=== PATIENT | female | born 1985 | race Two or more races ===

== ENCOUNTER 2023-09-04 14:21 | Outpatient (CLI) | payer OTHER ==
[2023-09-05] MEDS ORDERED: OBSTETRIX ONE CAPSUL (11:32)
[2023-09-05] MEDS ORDERED: VITAMIN D-40010 MCG PO (12:23)
[2023-09-05] MEDS ORDERED: VITAMIN C100 MG PO (12:23)
[2023-09-05] MEDS ORDERED: MAGNESIUM200 MG PO (12:25)
[2023-09-05] MEDS ORDERED: PRENATAL TABLE1 EAC1 PO (12:25)
== END 2023-09-04 14:30 | disposition home or self-care (01) ==
LOC: PRENATAL 14:21
PROVIDERS: ATTEND Obstetrics & Gynecology Maternal & Fetal Medicine
DX: O35.9XX0 Maternal care for (suspected) fetal abnormality and damage, unspecified, not applicable or unspecified (principal); O35.3XX0 Maternal care for (suspected) damage to fetus from viral disease in mother, not applicable or unspecified; O09.519 Supervision of elderly primigravida, unspecified trimester; O44.00 Complete placenta previa NOS or without hemorrhage, unspecified trimester; Z3A.20 20 weeks gestation of pregnancy

== ENCOUNTER 2023-09-04 17:58 | Inpatient (IN) | payer OTHER ==
[~2023-09-04] VITALS: Ht 165.1 cm; Wt 66.7 kg
[2023-09-04 18:54] LABS: PH,URINE 6.5 (5.0-8.0); URINE APPEARANCE Clear; URINE BILIRRUBIN Negative (NEGATIVE); URINE BLOOD Large; URINE COLOR Yellow; URINE GLUCOSE Negative (NEGATIVE); URINE LEUKOCYTE Negative; URINE NITRATE Negative; URINE PROTEIN Negative (NEGATIVE); URINE UROBILINOGEN 0.2 E.U./dl
[2023-09-04 18:54] LABS: HEMATOCRIT 34.1 % (36.0-45.00); HEMOGLOBIN 11.5 g/dL (12.0-15.00); MEAN CELL VOLUME 89.4 fL (80.00-100.00); MEAN CORPUSCULAR HEMOGLOBIN 30.2 pg (27.00-32.0); MEAN CORPUSCULAR HGB CONC 33.7 g/dl (32.0-36.0); PLATELET COUNT 187 K/uL (150-450); RED BLOOD COUNT 3.81 M/uL (4.00-6.00); RED CELL DISTRIBUTION WIDTH 14.5 % (11.5-14.5)
[2023-09-04 18:55] LABS: URINE BACTERIA 26.4 uL (0.0-1933); URINE EPITHELIAL CELLS 3.2 uL (0.0-38.8); URINE RBC 1252.5 uL (0.0-20.8); URINE WBC 3.8 uL (0.0-23.2)
[2023-09-04 19:11] LABS: INR 0.95; PARTIAL THROMBOPLASTIN TIME 26.3 SECONDS (22.0-34.0)
[2023-09-04 19:16] LABS: ALBUMIN 2.9 gm/dL (3.4-5.0); BILIRUBIN TOTAL 0.24 mg/dL (0.3-1.2); CALCIUM 8.7 mg/dL (8.5-10.1); CREATININE SERUM 0.63 mg/dL (0.55-1.02); GFR 106.33; POTASSIUM 3.79 mEq/L (3.5-5.1); TOTAL PROTEIN 6.9 gm/dL (6.4-8.2)
[2023-09-05] MEDS ORDERED: OBSTETRIX ONE CAPSUL (11:32)
[2023-09-05] MEDS ORDERED: VITAMIN D-40010 MCG PO (12:23)
[2023-09-05] MEDS ORDERED: VITAMIN C100 MG PO (12:23)
[2023-09-05] MEDS ORDERED: MAGNESIUM200 MG PO (12:25)
[2023-09-05] MEDS ORDERED: PRENATAL TABLE1 EAC1 PO (12:25)
== END 2023-09-08 12:56 | disposition home or self-care (01) | DRG 833 ==
LOC: OBS/DEL 17:58 → LDR 09-05 12:05 → OBS/DEL 09-05 12:05 → OB/GYN 09-05 12:05
PROVIDERS: ADMIT General Practice; ATTEND General Practice
PROC: 4A1HXCZ Monitoring of Products of Conception, Cardiac Rate, External Approach (ICD-10-PCS; principal; 2023-09-05)
DX: O26.872 Cervical shortening, second trimester (principal); Z3A.20 20 weeks gestation of pregnancy; Z20.822 Contact with and (suspected) exposure to COVID-19

== ENCOUNTER 2024-04-03 10:15 | Inpatient (IN) | payer OTHER ==
[~2024-04-03] VITALS: Ht 165.1 cm; Wt 63.5 kg
[~2024-04-03 10:15] MED LIST: MAGNESIUM200 MG PO; OBSTETRIX ONE CAPSUL; PRENATAL TABLE1 EAC1 PO; VITAMIN C100 MG PO; VITAMIN D-40010 MCG PO
[2024-04-03 11:19] LABS: HEMATOCRIT 40.7 % (36.0-45.00); HEMOGLOBIN 13.6 g/dL (12.0-15.00); MEAN CORPUSCULAR HEMOGLOBIN 29.8 pg (27.00-32.0); MEAN CORPUSCULAR HGB CONC 33.5 g/dl (32.0-36.0); PLATELET COUNT 216 K/uL (150-450); RED BLOOD COUNT 4.57 M/uL (4.00-6.00); RED CELL DISTRIBUTION WIDTH 14.3 % (11.5-14.5)
[2024-04-03 11:39] LABS: INR 1.03; PARTIAL THROMBOPLASTIN TIME 26.6 SECONDS (22.0-34.0); PROTHROMBIN TIME 10.8 SECONDS (9.0-11.5)
[2024-04-03 11:47] LABS: ALBUMIN 3.9 gm/dL (3.4-5.0); BILIRUBIN TOTAL 0.64 mg/dL (0.3-1.2); CALCIUM 9.3 mg/dL (8.5-10.1); CREATININE SERUM 0.67 mg/dL (0.55-1.02); GFR 98.5; GLOBULINA 3.5 G/DL (2.4-3.5); POTASSIUM 4.31 mEq/L (3.5-5.1); TOTAL PROTEIN 7.4 gm/dL (6.4-8.2)
[2024-04-10] MEDS ORDERED: POVIDONE-IODINE 118 ML BOTT TOP NR (07:15)
[2024-04-10] MEDS ORDERED: CEFAZOLIN SODIUM 1,000 MG VIAL IV ONE (08:00)
[2024-04-10] MEDS ORDERED: ONDANSETRON HCL 2 MG/ML VIAL ONE (09:32)
[2024-04-10 11:06] LABS: HEMATOCRIT 39.1 % (36.0-45.00); HEMOGLOBIN 13.2 g/dL (12.0-15.00); MEAN CELL VOLUME 88.3 fL (80.00-100.00); MEAN CORPUSCULAR HEMOGLOBIN 29.9 pg (27.00-32.0); MEAN CORPUSCULAR HGB CONC 33.8 g/dl (32.0-36.0); PLATELET COUNT 141 K/uL (150-450); RED BLOOD COUNT 4.43 M/uL (4.00-6.00); RED CELL DISTRIBUTION WIDTH 14.7 % (11.5-14.5)
[2024-04-10] MEDS ORDERED: KETOROLAC TROMETHAMINE 30 MG VIAL ONE (11:10)
[2024-04-10] MEDS ORDERED: KETOROLAC TROMETHAMINE 30 MG VIAL IM SCH (11:45)
[2024-04-10] MEDS ORDERED: KETOROLAC TROMETHAMINE 10 MG TABLET PO SCH (14:00)
[2024-04-10 15:24] LABS: HEMOGLOBIN 12.5 g/dL (12.0-15.00); MEAN CELL VOLUME 89.4 fL (80.00-100.00); MEAN CORPUSCULAR HEMOGLOBIN 29.5 pg (27.00-32.0); PLATELET COUNT 159 K/uL (150-450); RED BLOOD COUNT 4.26 M/uL (4.00-6.00); RED CELL DISTRIBUTION WIDTH 14.5 % (11.5-14.5)
[2024-04-10] MEDS ORDERED: MEPERIDINE HCL/PF 25 MG,MEPERIDINE HCL/PF 50 MG IM SCH (17:00)
[2024-04-10] MEDS ORDERED: PROMETHAZINE HCL 25 MG/ML AMPUL IM SCH (17:00)
[2024-04-10] MEDS ORDERED: CEFAZOLIN SODIUM 1,000 MG VIAL IV SCH (17:00)
[2024-04-11 06:38] LABS: HEMOGLOBIN 11.7 g/dL (12.0-15.00); MEAN CELL VOLUME 90.3 fL (80.00-100.00); MEAN CORPUSCULAR HEMOGLOBIN 30.2 pg (27.00-32.0); MEAN CORPUSCULAR HGB CONC 33.4 g/dl (32.0-36.0); PLATELET COUNT 149 K/uL (150-450); RED BLOOD COUNT 3.88 M/uL (4.00-6.00); RED CELL DISTRIBUTION WIDTH 14.7 % (11.5-14.5)
[2024-04-11] MEDS ORDERED: ACETAMINOPHEN WITH CODEINE 1 UDTAB TABLET PO SCH (09:00)
[2024-04-11] MEDS ORDERED: GUAIFENESIN 200 MG/10 ML BLIST.PACK PO SCH (13:45)
[2024-04-13] MEDS ORDERED: ACETAMINOPHEN-1 EAC2 PO (11:32)
[2024-04-13] MEDS ORDERED: KETO10TA2 PO (11:32)
== END 2024-04-13 12:10 | disposition home or self-care (01) | DRG 743 ==
LOC: O/R 04-10 05:36 → OB/GYN 04-10 05:36 → SURH 04-10 07:00 → OB/GYN 04-10 11:03 → SURH 04-10 12:00 → OB/GYN 04-13 12:10
PROVIDERS: ADMIT Obstetrics & Gynecology Maternal & Fetal Medicine; ATTEND Obstetrics & Gynecology Maternal & Fetal Medicine
PROC: 0UVC7ZZ Restriction of Cervix, Via Natural or Artificial Opening (ICD-10-PCS; 2024-04-10)
PROC: 0DBW0ZX Excision of Peritoneum, Open Approach, Diagnostic (ICD-10-PCS; 2024-04-10)
PROC: 0UB90ZZ Excision of Uterus, Open Approach (ICD-10-PCS; principal; 2024-04-10 07:00)
DX: D25.9 Leiomyoma of uterus, unspecified (principal); N88.8 Other specified noninflammatory disorders of cervix uteri; Z20.822 Contact with and (suspected) exposure to COVID-19

== ENCOUNTER 2025-01-01 11:19 | Outpatient (CLI) | payer OTHER ==
[~2025-01-01 11:19] MED LIST changes: +ACETAMINOPHEN-1 EAC2 PO; +KETO10TA2 PO
== END 2025-01-01 12:11 | disposition home or self-care (01) ==
LOC: NST 11:19
PROVIDERS: ATTEND Obstetrics & Gynecology Maternal & Fetal Medicine
DX: Z34.82 Encounter for supervision of other normal pregnancy, second trimester (principal)

== ENCOUNTER → 2025-01-29 | Outpatient (CLI) | payer OTHER | END | disposition home or self-care (01) | LOC: NST 09:54 | PROVIDERS: ATTEND Obstetrics & Gynecology | DX: Z34.83 Encounter for supervision of other normal pregnancy, third trimester (principal) ==

== ENCOUNTER 2025-02-13 10:18 | Outpatient (CLI) | payer OTHER | END 2025-02-13 11:09 | disposition home or self-care (01) | LOC: NST 10:18 | PROVIDERS: ATTEND Obstetrics & Gynecology | DX: Z3A.33 33 weeks gestation of pregnancy (principal) ==

== ENCOUNTER 2025-03-04 15:43 | Outpatient (CLI) | payer OTHER | END 2025-03-04 16:19 | disposition home or self-care (01) | LOC: NST 15:43 | PROVIDERS: ATTEND Obstetrics & Gynecology Maternal & Fetal Medicine | DX: Z34.83 Encounter for supervision of other normal pregnancy, third trimester (principal) ==

== ENCOUNTER 2025-03-17 11:15 | Inpatient (IN) | payer OTHER ==
[~2025-03-17] VITALS: Ht 165.1 cm; Wt 2.7 kg
[2025-03-17 12:54] LABS: BASO % 0.5 % (0.1-1.2); EOS # 0.02 (0.04-0.54); EOS % 0.2 % (0.7-7.0); HEMATOCRIT 35.6 % (34.1-44.9); HEMOGLOBIN 11.6 g/dL (11.2-15.7); LYMPH # 1.35 (1.18-3.74); LYMPH % 15.9 % (19.3-53.1); MEAN CORPUSCULAR HEMOGLOBIN 28.7 pg (25.6-32.2); MONO # 0.69 (0.24-0.82); MONO % 8.1 % (4.7-12.5); NEUT # 6.34 (1.56-6.13); NEUT % 74.5 % (34.0-71.1); PLATELET COUNT 146 K/uL (163-369); RED BLOOD COUNT 4.04 M/uL (3.93-5.22); RED CELL DISTRIBUTION WIDTH 15.6 % (11.6-14.4)
[2025-03-17 13:13] LABS: INR < 0.93; PARTIAL THROMBOPLASTIN TIME 22.7 SECONDS (22.0-34.0); PROTHROMBIN TIME 9.9 SECONDS (9.0-11.5)
[2025-03-17 13:29] LABS: ALBUMIN 2.6 gm/dL (3.4-5.0); BILIRUBIN TOTAL 0.31 mg/dL (0.3-1.2); CREATININE SERUM 0.7 mg/dL (0.55-1.02); GFR 93.16; GLOBULINA 3.6 G/DL (2.4-3.5); POTASSIUM 4.27 mEq/L (3.5-5.1); TOTAL PROTEIN 6.2 gm/dL (6.4-8.2)
[2025-03-19 07:38] VITALS: BP 113/75
[2025-03-19] MEDS ORDERED: CEFOXITIN SODIUM 2,000 MG VIAL IV ONE ×2 (08:36→18:00)
[2025-03-19] MEDS ORDERED: CITRIC ACID/SODIUM CITRATE 30 ML BLIST.PACK PO ONE (08:36)
[2025-03-19] MEDS ORDERED: ERYTHROMYCIN BASE OPHT 1GM EACH TUBE OP ONE (09:05)
[2025-03-19] MEDS ORDERED: OXYTOCIN 10 UNITS/ML VIAL ONE (09:05)
[2025-03-19] MEDS ORDERED: KETOROLAC TROMETHAMINE 30 MG VIAL ONE (11:57)
[2025-03-19] MEDS ORDERED: KETOROLAC TROMETHAMINE 30 MG VIAL IM ONE (12:30)
[2025-03-19 15:02] VITALS: BP 131/76
[2025-03-19 15:11] LABS: BASO % 0.3 % (0.1-1.2); EOS # 0.01 (0.04-0.54); EOS % 0.1 % (0.7-7.0); HEMATOCRIT 41.4 % (34.1-44.9); HEMOGLOBIN 13.9 g/dL (11.2-15.7); LYMPH # 1.47 (1.18-3.74); LYMPH % 8.1 % (19.3-53.1); MEAN CORPUSCULAR HEMOGLOBIN 29.8 pg (25.6-32.2); MONO # 0.92 (0.24-0.82); MONO % 5.1 % (4.7-12.5); NEUT # 15.59 (1.56-6.13); NEUT % 85.7 % (34.0-71.1); PLATELET COUNT 157 K/uL (163-369); RED BLOOD COUNT 4.66 M/uL (3.93-5.22); RED CELL DISTRIBUTION WIDTH 15.7 % (11.6-14.4)
[2025-03-19 16:20] VITALS: BP 153/77
[2025-03-19] MEDS ORDERED: MEPERIDINE HCL/PF 50 MG/ML VIAL IM SCH (17:00)
[2025-03-19] MEDS ORDERED: MORPHINE SULFATE 4 MG/ML CARTRIDGE IV PRN (17:00)
[2025-03-19] MEDS ORDERED: SIMETHICONE 125 MG CAPSULE PO SCH (17:00)
[2025-03-19] MEDS ORDERED: PROMETHAZINE HCL 25 MG/ML AMPUL IM SCH (17:00)
[2025-03-19] MEDS ORDERED: ONDANSETRON HCL 2 MG/ML VIAL IV PRN (17:00)
[2025-03-19] MEDS ORDERED: KETOROLAC TROMETHAMINE 10 MG TABLET PO PRN (18:00)
[2025-03-19 20:00] VITALS: BP 136/78
[2025-03-20 01:29] VITALS: BP 122/76
[2025-03-20 07:35] LABS: BASO % 0.2 % (0.1-1.2); EOS # 0.02 (0.04-0.54); EOS % 0.1 % (0.7-7.0); HEMATOCRIT 31.8 % (34.1-44.9); HEMOGLOBIN 10.8 g/dL (11.2-15.7); LYMPH # 1.53 (1.18-3.74); LYMPH % 11.5 % (19.3-53.1); MONO # 0.96 (0.24-0.82); MONO % 7.2 % (4.7-12.5); NEUT # 10.74 (1.56-6.13); NEUT % 80.4 % (34.0-71.1); RED CELL DISTRIBUTION WIDTH 15.9 % (11.6-14.4)
[2025-03-20 07:47] LABS: PLATELET COUNT 123 K/uL (163-369)
[2025-03-20] MEDS ORDERED: OxyCODONE HCL 5 MG TABLET (ROXICODONE) PO SCH (08:00)
[2025-03-20 10:46] VITALS: BP 111/69
[2025-03-20 16:00] VITALS: BP 118/74
[2025-03-21 01:12] VITALS: BP 125/64
[2025-03-21] MEDS ORDERED: OXYTOCIN 10 UNITS/ML VIAL IV ONE (09:15)
[2025-03-21] MEDS ORDERED: CEFAZOLIN SODIUM 1,000 MG VIAL IV ONE (09:15)
[2025-03-21] MEDS ORDERED: ERYTHROMYCIN BASE OPHT 1GM EACH TUBE OP ONE (09:15)
[2025-03-21 10:04] VITALS: BP 134/75
[2025-03-21 16:32] VITALS: BP 137/83
[2025-03-21] MEDS ORDERED: BISACODYL 5 MG TABLET.EC PO ONE (21:15)
[2025-03-22 01:39] VITALS: BP 138/77
[2025-03-22 08:00] VITALS: BP 131/75
== END 2025-03-22 13:49 | disposition home or self-care (01) | DRG 788 ==
LOC: O/R 03-19 05:55 → OB/GYN 03-19 05:55
PROVIDERS: ADMIT Obstetrics & Gynecology Maternal & Fetal Medicine; ATTEND Obstetrics & Gynecology Maternal & Fetal Medicine
PROC: 4A1HXCZ Monitoring of Products of Conception, Cardiac Rate, External Approach (ICD-10-PCS; 2025-03-19)
PROC: 10D00Z1 Extraction of Products of Conception, Low, Open Approach (ICD-10-PCS; principal; 2025-03-19 08:30)
DX: O34.83 Maternal care for other abnormalities of pelvic organs, third trimester (principal); Z3A.38 38 weeks gestation of pregnancy; Z37.0 Single live birth

== ENCOUNTER 2025-03-23 18:07 | Emergency (ER) | payer OTHER ==
[~2025-03-23] VITALS: Ht 165.1 cm; Wt 81.6 kg
[2025-03-23] MEDS ORDERED: 0.9 % SODIUM CHLORIDE 2,000 ML IV STA (19:06)
[2025-03-23] MEDS ORDERED: HALOPERIDOL LACTATE 5 MG/ML AMPUL IM STA (19:07)
[2025-03-23] MEDS ORDERED: DIPHENHYDRAMINE HCL 50 MG/ML VIAL 1ML IM STA (19:07)
[2025-03-23] MEDS ORDERED: KETOROLAC TROMETHAMINE 15 MG VIAL IV STA (19:08)
[2025-03-23 20:15] LABS: BASO % 0.4 % (0.1-1.2); EOS # 0.13 (0.04-0.54); EOS % 1.2 % (0.7-7.0); HEMOGLOBIN 11.1 g/dL (11.2-15.7); LYMPH % 10.6 % (19.3-53.1); MEAN CORPUSCULAR HEMOGLOBIN 29.5 pg (25.6-32.2); MONO # 0.79 (0.24-0.82); NEUT # 9.03 (1.56-6.13); NEUT % 80.1 % (34.0-71.1); PLATELET COUNT 163 K/uL (163-369); RED BLOOD COUNT 3.76 M/uL (3.93-5.22); RED CELL DISTRIBUTION WIDTH 15.7 % (11.6-14.4)
[2025-03-23 20:56] LABS: ALBUMIN 2.5 gm/dL (3.4-5.0); BILIRUBIN TOTAL 0.44 mg/dL (0.3-1.2); CALCIUM 8.7 mg/dL (8.5-10.1); CREATININE SERUM 0.62 mg/dL (0.55-1.02); GFR 107.16; GLOBULINA 3.6 G/DL (2.4-3.5); POTASSIUM 4.02 mEq/L (3.5-5.1); TOTAL PROTEIN 6.1 gm/dL (6.4-8.2)
== END 2025-03-23 22:08 | disposition home or self-care (01) ==
LOC: ER 18:07
DX: O89.4 Spinal and epidural anesthesia-induced headache during the puerperium (principal)

== ENCOUNTER 2025-03-25 02:04 | Inpatient (IN) | payer OTHER ==
[~2025-03-25] VITALS: Ht 165.1 cm; Wt 86.2 kg
--- NOTE | 2025-03-25 02:20 | NUR ---
PTE ALERTA Y ORIENTADA X3. REFIERE ESTABA CON HERNANDEZ ALEIDA CUANDO SE TEDDY. SE REFIERE DOLOR DE RYAN. PTE DE DR. ALEJANDRE, SE LE REALIZO CESARIA MIERCOLES
[2025-03-25] MEDS ORDERED: 0.9 % SODIUM CHLORIDE 1,000 ML IV STA ×2 (03:27→03:38)
[2025-03-25] MEDS ORDERED: DEXAMETHASONE SODIUM PHOSPHATE 4 MG/ML VIAL IV STA (03:45)
[2025-03-25] MEDS ORDERED: KETOROLAC TROMETHAMINE 30 MG VIAL IV STA (03:46)
--- NOTE | 2025-03-25 04:13 | NUR ---
SE REALIZA B/P MANUAL 190/80[facility] SE NOTIFICA A DR. MULTANI.
[2025-03-25] MEDS ORDERED: LORazepam 2 MG/ML VIAL IV PUSH STA (04:23)
--- NOTE | 2025-03-25 04:36 | NUR ---
SE RECIBE PTE INCONCIENTE CON MOVIEMIENTOS INVOLUNTARIOS DE AREA DE OBSERVACION SE COLOCOCA EN AREA DE CRITICO EN CAMA #1 CON BARADAS ELEVADAS. SE CONECTA A MONITOSR CARDIACO Y OXIMETRIA DE PULSO SE LE REALIZA EKG. SE OBSERVA POR CAMBIOS.
--- NOTE | 2025-03-25 04:42 | NUR ---
PTE ALERTA Y ORIENTADA X3 SE ORIENTA SOBRE TRATMIENTO MEDICO Y MUESTRAS DE JESUS. SE CANALIZA PARK DE EDEMA NI ERITEMA SE SYD MUESTRAS DE JESUS BAJO MEDIDAS ASEPTICAS, PTE PRESENTA CONVULCION SE NOTIFICA A MEDICO EL CUAL PONE ORDEN DE PASAR PTE A AREA DE CRITICO.
[2025-03-25 04:56] LABS: URINE APPEARANCE Clear; URINE BILIRRUBIN Negative (NEGATIVE); URINE BLOOD Moderate; URINE COLOR Yellow; URINE GLUCOSE Negative (NEGATIVE); URINE KETONE Negative (NEGATIVE); URINE LEUKOCYTE Negative; URINE NITRATE Negative; URINE PROTEIN Negative (NEGATIVE); URINE UROBILINOGEN 0.2 E.U./dl
[2025-03-25 05:00] LABS: ABG PH 7.315 (7.35-7.45); ABG PO2 70.4 mmHg (80-100); BICARBONATE 17.8 mmol/l (23-25)
[2025-03-25 05:00] LABS: URINE BACTERIA 9.5 uL (0.0-1933); URINE EPITHELIAL CELLS 4.9 uL (0.0-38.8); URINE RBC 3.5 uL (0.0-20.8); URINE WBC 15.6 uL (0.0-23.2)
[2025-03-25 05:03] LABS: URINE CAST 0.14 uL (0.0-1.40)
[2025-03-25 05:14] LABS: BASO % 0.2 % (0.1-1.2); EOS # 0.04 (0.04-0.54); EOS % 0.3 % (0.7-7.0); LYMPH # 1.17 (1.18-3.74); LYMPH % 9.5 % (19.3-53.1); MEAN PLATELET VOLUME 11.90 fl (9.4-12.4); MONO # 0.68 (0.24-0.82); MONO % 5.5 % (4.7-12.5); NEUT # 10.20 (1.56-6.13); NEUT % 83.1 % (34.0-71.1); RED CELL DISTRIBUTION WIDTH 15.5 % (11.6-14.4)
[2025-03-25 05:25] LABS: INR 0.98
[2025-03-25] MEDS ORDERED: MAGNESIUM SULFATE IN WATER 4 GM/100 ML PIGGYBACK IV STA (05:33)
--- NOTE | 2025-03-25 05:33 | NUR ---
SE MARY B/P MANUAL 160/70
[2025-03-25 05:40] LABS: ALT/SGPT 294.0 U/L (12-78); AST/SGOT 148.0 U/L (15-37); BILIRUBIN TOTAL 0.5 mg/dL (0.3-1.2); BUN CREA RATIO 21.0 (7.0-25.0); CREATININE SERUM 0.61 mg/dL (0.55-1.02); GFR 109.19; GLOBULINA 3.3 G/DL (2.4-3.5); GLUCOSE FASTING 98.0 mg/dL (65-100); OSMOLALITY SERUM 293.0 MOSM/KG (275-295); TSH 1.64 uIU/mL (0.358-3.74)
[2025-03-25 05:40] LABS: o2 32 %
[2025-03-25] MEDS ORDERED: LABETALOL HCL 20MG/4ML SYRINGE IV STA (06:31)
[2025-03-25] MEDS ORDERED: MAGNESIUM SULFATE IN WATER 500 ML IV SCH (07:00)
[2025-03-25 07:32] LABS: BILIRUBIN TOTAL 0.44 mg/dL (0.3-1.2); BILIRUBIN,CONJUGATED 0.12 mg/dL (0.0-0.2)
--- NOTE | 2025-03-25 08:19 | NUR ---
SE RECIBE PTE. UBICADA EN CAMA#1 DE SANDRITA CRITICA, CONECTADA A MONITOR CARDIACO, IVF PATENTE EN BRAZO YOLA CON 0.9NSS AT 100ML/HR. PAINTING CATETER IN PLACE. SE SYD SIGNOS VITALES Y SE COMIENZA DRIP DE SULFATO DE MAGNESIO AT 50ML/HR. SE ORIENTA SOBRE PROCEDIENTOS REALIZADOS Y SEGUIMIENTO DE CONDICION. CLIENTE ALERTA Y ORIENTADO AL MOMENTO DE LA INTERVENCION PORPERSONAL RN, SE MANTIENEN EN OBSERVACION POR CAMBIOS SIGNIFICATIVOS EN HERNANDEZ CONDICION.
--- NOTE | 2025-03-25 10:45 | NUR ---
SE LLEVA A LA PTE A ESTUDIO DE MRI DE RYAN CON CONTRASTE IV. SE LE MARY MUESTRA DE MAGNECIO POR ORDEN MEDICA DEL RONALDO HOWELL NEUROLOGO. SE MANTIENE BAJO OBSERVACION.
[2025-03-25] MEDS ORDERED: LABETALOL HCL 100 MG/20 ML ML IV PUSH ONE (13:30)
--- NOTE | 2025-03-25 15:05 | NUR ---
SE RECIBE FEMINA DEL TURNO ANTERIOR EN UNIDAD DE CRITICO #1, CAMA POSICION MAS BAJA Y BARANDAS ELEVADAS POR SEGURIDAD. CONECTADA A MONITOR CARDIACO Y OXIMETRIA DE PULSO. CANALIZADA EN AMBAS EXTREMIDADES SUPERIORES, PATENTES LIBRES DE EDEMA, ERITEMA Y SIGNOS DE INFECCION CON IVF'S JILLIAN ORDEN MEDICA. PACIENTE CON SONDA URINARIA PATENTE, COLOCADA A GRAVEDAD. PACIENTE CONSULTADA CON DR BRIGGS Y DR RONALDO ESPARZA.
[2025-03-25] MEDS ORDERED: LABETALOL HCL 200 MG TABLET PO SCH (17:00)
[2025-03-25] MEDS ORDERED: hydrALAZINE HCL 20 MG VIAL IV PRN (17:30)
[2025-03-25] MEDS ORDERED: DEXAMETHASONE SODIUM PHOSP/PF 10 MG/ML VIAL IV STA (17:34)
[2025-03-25 18:00] VITALS: BP 134/70; O2SAT 98
[2025-03-25] MEDS ORDERED: DEXAMETHASONE SODIUM PHOSP/PF 10 MG/ML VIAL IV SCH (18:00)
[2025-03-25 19:00] VITALS: BP 155/73; O2SAT 98
[2025-03-25 20:46] VITALS: BP 151/75; O2SAT 95
[2025-03-25 23:31] VITALS: BP 140/68; O2SAT 95
[2025-03-26] VITALS (8 sets, daily range): BP systolic 134–163; BP diastolic 65–89; O2SAT 97–100
[2025-03-26] MEDS ORDERED: DEXAMETHASONE SODIUM PHOSPHATE 4 MG/ML VIAL IV SCH ×2 (05:00→12:00)
[2025-03-26 06:15] LABS: BASO % 0.2 % (0.1-1.2); EOS # 0.00 (0.04-0.54); EOS % 0.0 % (0.7-7.0); LYMPH # 0.76 (1.18-3.74); LYMPH % 7.9 % (19.3-53.1); MEAN PLATELET VOLUME 11.60 fl (9.4-12.4); MONO # 0.30 (0.24-0.82); MONO % 3.1 % (4.7-12.5); NEUT # 8.42 (1.56-6.13); NEUT % 87.7 % (34.0-71.1); RED CELL DISTRIBUTION WIDTH 15.4 % (11.6-14.4)
[2025-03-26 06:41] LABS: ALT/SGPT 243.0 U/L (12-78); AST/SGOT 87.0 U/L (15-37); BILIRUBIN TOTAL 0.42 mg/dL (0.3-1.2); BUN CREA RATIO 15.0 (7.0-25.0); CREATININE SERUM 0.53 mg/dL (0.55-1.02); GFR 128.42; GLOBULINA 3.5 G/DL (2.4-3.5); GLUCOSE FASTING 102.0 mg/dL (65-100); OSMOLALITY SERUM 282.0 MOSM/KG (275-295)
[2025-03-26] MEDS ORDERED: CYCLOBENZAPRINE HCL 5 MG TABLET PO PRN (18:00)
[2025-03-26 18:18] LABS: URINE APPEARANCE Clear; URINE BILIRRUBIN Negative (NEGATIVE); URINE BLOOD Moderate; URINE COLOR Yellow; URINE GLUCOSE Negative (NEGATIVE); URINE KETONE Negative (NEGATIVE); URINE LEUKOCYTE Negative; URINE NITRATE Negative; URINE PROTEIN 30 (NEGATIVE); URINE UROBILINOGEN 1.0 E.U./dl
[2025-03-26 18:19] LABS: BASO % 0.4 % (0.1-1.2); EOS # 0.12 (0.04-0.54); EOS % 1.1 % (0.7-7.0); LYMPH # 1.85 (1.18-3.74); LYMPH % 16.8 % (19.3-53.1); MEAN PLATELET VOLUME 11.50 fl (9.4-12.4); MONO # 0.83 (0.24-0.82); MONO % 7.6 % (4.7-12.5); NEUT # 8.01 (1.56-6.13); NEUT % 72.8 % (34.0-71.1); RED CELL DISTRIBUTION WIDTH 15.6 % (11.6-14.4)
[2025-03-26 18:21] LABS: URINE BACTERIA 63.6 uL (0.0-1933); URINE EPITHELIAL CELLS 3.9 uL (0.0-38.8); URINE RBC 656.3 uL (0.0-20.8); URINE WBC 8.5 uL (0.0-23.2)
[2025-03-26 18:37] LABS: URINE CAST 0.29 uL (0.0-1.40)
[2025-03-26 18:53] LABS: ALT/SGPT 200.0 U/L (12-78); AST/SGOT 65.0 U/L (15-37); BILIRUBIN TOTAL 0.4 mg/dL (0.3-1.2); BUN CREA RATIO 14.0 (7.0-25.0); CREATININE SERUM 0.63 mg/dL (0.55-1.02); GFR 105.2; GLOBULINA 3.5 G/DL (2.4-3.5); GLUCOSE FASTING 82.0 mg/dL (65-100); OSMOLALITY SERUM 285.0 MOSM/KG (275-295)
[2025-03-26] MEDS ORDERED: DEXAMETHASONE SODIUM PHOSP/PF 10 MG/ML VIAL IV STA (19:29)
[2025-03-26] MEDS ORDERED: Calcium Carbonate 1250 MG/5 ML PO SCH (20:14)
[2025-03-26] MEDS ORDERED: hydrALAZINE HCL 20 MG VIAL IV ONE (23:45)
[2025-03-27] VITALS (8 sets, daily range): BP systolic 112–1435; BP diastolic 68–687; O2SAT 96–99
[2025-03-27] MEDS ORDERED: RINGERS SOLUTION,LACTATED 1,000 ML IV SCH (07:30)
[2025-03-27] MEDS ORDERED: NIFEDIPINE 30 MG TAB.SA.OSM PO SCH (09:00)
[2025-03-28] VITALS (7 sets, daily range): BP systolic 116–148; BP diastolic 70–84; O2SAT 97–99
[2025-03-28] MEDS ORDERED: ACETAMINOPHEN 500 MG GEL..CAP PO ONE (06:45)
[2025-03-28] MEDS ORDERED: NITROFURANTOIN MONOHYD/M-CRYST 100 MG CAPSULE PO SCH ×2 (12:12→12:15)
[2025-03-28] MEDS ORDERED: LOPERAMIDE HCL 2 MG CAPSULE PO PRN (12:15)
[2025-03-28] MEDS ORDERED: NIFEDIPINE 60 MG TAB.SA.OSM PO SCH (17:00)
[2025-03-28] MEDS ORDERED: ACETAMINOPHEN 500 MG GEL..CAP PO PRN (17:45)
[2025-03-29 04:06] VITALS: BP 136/72
[2025-03-29 07:28] VITALS: BP 138/74; O2SAT 97
[2025-03-29 12:24] VITALS: BP 125/76
[2025-03-29 15:10] VITALS: BP 130/82
[2025-03-29 20:30] VITALS: BP 152/82; O2SAT 98
[2025-03-29 23:13] VITALS: BP 164/92
[2025-03-29] MEDS ORDERED: NIFEDIPINE 60 MG TAB.SA.OSM PO STA (23:55)
[2025-03-30 03:41] VITALS: BP 108/67
[2025-03-30 07:29] VITALS: BP 138/80
[2025-03-30] MEDS ORDERED: NIFEDIPINE 60 MG TAB.SA.OSM PO SCH (09:00)
[2025-03-30 09:05] VITALS: BP 128/68
== END 2025-03-30 10:00 | disposition home or self-care (01) | DRG 776 ==
LOC: ER 02:04 → EMR PED 02:08 → LDR 18:36 → ICU-2 18:36 → LDR 03-26 07:50
PROVIDERS: Obstetrics & Gynecology Gynecology; Psychiatry & Neurology Clinical Neurophysiology; ADMIT Obstetrics & Gynecology Maternal & Fetal Medicine; ATTEND Obstetrics & Gynecology Maternal & Fetal Medicine
PROC: BW29ZZZ Computerized Tomography (CT Scan) of Head and Neck (ICD-10-PCS; principal; 2025-03-25)
PROC: B030YZZ Magnetic Resonance Imaging (MRI) of Brain using Other Contrast (ICD-10-PCS; 2025-03-25)
PROC: B030ZZZ Magnetic Resonance Imaging (MRI) of Brain (ICD-10-PCS; 2025-03-25)
DX: O15.2 Eclampsia complicating the puerperium (principal)
CPT/HCPCS: 70546

== ENCOUNTER 2025-04-01 16:28 | Outpatient (CLI) | payer OTHER | END 2025-04-01 16:38 | disposition home or self-care (01) | LOC: MRI 16:28 | PROVIDERS: ATTEND Psychiatry & Neurology Clinical Neurophysiology | DX: R27.0 Ataxia, unspecified (principal) | CPT/HCPCS: 70551 ==